=== PATIENT | male | born 1980 | race Caucasian/White ===

== ENCOUNTER 2017-02-19 07:28 | Emergency (ER) | payer BC ==
[~2017-02-19] VITALS: Ht 182.9 cm; Wt 114.0 kg
[~2017-02-19 07:28] MED LIST: CIPR500T2 PO; IBUP-238 PO; TYLE500T PO
[2017-02-19 07:31] VITALS: BP 141/89; PULSE 72; RESP 16; TEMP 98.3; O2SAT 97
--- NOTE | 2017-02-19 07:42 | PD ---
HPI Chief Complaint: Flank/Kidney Pain Time Seen by Provider: 07:42 Travel History International Travel<30 days: No Contact w/Intl Traveler<30days: No Traveled to known affect area: No History of Present Illness HPI 36-year-old male came to the emergency room with history of flank pain bilateral for few weeks. Patient says it has been progressively worsening. He is also experiencing some lower abdominal pain. He has been nauseous on and off but has not vomited. No history of fever or chills. Vital signs were stable. He has passed kidney stones in the past. He says about a week ago he had his urine tested and it was positive for blood. He thinks he is passing a kidney stone again. [facility] Past Medical History Narrative Medical List of his past medical, surgical, social and family history was reviewed from the nursing note. Anxiety: Yes (EXPERIENCES NIGHT TERRORS) Diminished Hearing: No Hypertension: Yes (NOT TREATED) Kidney Stones: Yes Neurologic: Yes (SHINGLES) Respiratory: Yes (SLEEP APNEA) Sleep Apnea: Yes Past Surgical History Appendectomy: Yes Genitourinary Surgery: Yes (LITHOTRIPSY) Social History Alcohol Use: No Tobacco Use: No Substance Use: No Allergies-Medications (Allergen,Severity, Reaction): Coded Allergies: Penicillin (Verified Allergy, Severe, UNKNOWN, 02/19/17) Comments List of his allergies reviewed from the nursing note. Reported Meds & Prescriptions Reported Meds & Active Scripts Active No Active Prescriptions or Reported Medications Narrative Medication List of his home medications reviewed from the nursing note. Review of Systems Except as stated in HPI: all other systems reviewed are Neg Physical Exam Narrative GENERAL: Awake, alert, moderate distress SKIN: Focused skin assessment warm/dry. HEAD: Atraumatic. Normocephalic. EYES: Pupils equal and round. No scleral icterus. No injection or drainage. ENT: No nasal bleeding or discharge. Mucous membranes pink and moist. NECK: Trachea midline. No JVD. CARDIOVASCULAR: Regular rate and rhythm. No murmur appreciated. RESPIRATORY: No accessory muscle use. Clear to auscultation. Breath sounds equal bilaterally. GASTROINTESTINAL: Abdomen soft, non-tender, nondistended. Hepatic and splenic margins not palpable. Left flank tenderness MUSCULOSKELETAL: No obvious deformities. No clubbing. No cyanosis. No edema. NEUROLOGICAL: Awake and alert. No obvious cranial nerve deficits. Motor grossly within normal limits. Normal speech. PSYCHIATRIC: Appropriate mood and affect; insight and judgment normal. Data Data Last Documented VS Vital Signs Date Time Temp Pulse Resp B/P Pulse Ox O2 Delivery O2 Flow Rate FiO2 02/19/17 08:41 16 02/19/17 08:35 68 141/92 98 Room Air 02/19/17 07:31 98.3 Orders Complete Blood Count With Diff (02/19/17 07:45) Basic Metabolic Panel (Bmp) (02/19/17 07:45) Urinalysis - C+S If Indicated (02/19/17 07:45) Ct Abd/Pel W/O Iv Contrast (02/19/17 07:45) Ecg Monitoring (02/19/17 07:45) Iv Access Insert/Monitor (02/19/17 07:45) Morphine Inj (Morphine Inj) (02/19/17 07:45) Sodium Chloride 0.9% Flush (Ns Flush) (02/19/17 07:45) Sodium Chlor 0.9% 1000 Ml Inj (Ns 1000 M (02/19/17 07:45) Ondansetron Inj (Zofran Inj) (02/19/17 07:45) Ondansetron Inj (Zofran Inj) (02/19/17 08:15) Labs Laboratory Tests Test 02/19/17 02/19/17 07:55 08:05 Urine Collection Type CLEAN CATCH Urine Color YELLOW Urine Turbidity CLEAR Urine pH 6.0 Urine Specific Reed 1.025 Urine Protein 30 mg/dL Urine Glucose (UA) NEG mg/dL Urine Ketones NEG mg/dL Urine Occult Blood MOD Urine Nitrite NEG Urine Bilirubin NEG Urine Leukocyte Esterase NEG Urine RBC 4-9 /hpf Urine Squamous Epithelial 0-5 /hpf Cells Urine Mucus OCC /lpf Microscopic Urinalysis Comment CULT NOT INDICATED Urine Collection Time 07:55 White Blood Count 6.0 TH/MM3 Red Blood Count 5.51 MIL/MM3 Hemoglobin 16.0 GM/DL Hematocrit 49.3 % Mean Corpuscular Volume 89.5 FL Mean Corpuscular Hemoglobin 29.1 PG Mean Corpuscular Hemoglobin 32.5 % Concent Red Cell Distribution Width 11.5 % Platelet Count 262 TH/MM3 Mean Platelet Volume 8.4 FL Neutrophils (%) (Auto) 61.3 % Lymphocytes (%) (Auto) 27.0 % Monocytes (%) (Auto) 9.0 % Eosinophils (%) (Auto) 1.4 % Basophils (%) (Auto) 1.3 % Neutrophils # (Auto) 3.7 TH/MM3 Lymphocytes # (Auto) 1.6 TH/MM3 Monocytes # (Auto) 0.5 TH/MM3 Eosinophils # (Auto) 0.1 TH/MM3 Basophils # (Auto) 0.1 TH/MM3 CBC Comment DIFF FINAL Differential Comment Sodium Level 140 MEQ/L Potassium Level 4.3 MEQ/L Chloride Level 105 MEQ/L Carbon Dioxide Level 27.9 MEQ/L Anion Gap 7 MEQ/L Blood Urea Nitrogen 20 MG/DL Creatinine 1.30 MG/DL Estimat Glomerular Filtration 62 ML/MIN Rate Random Glucose 107 MG/DL Calcium Level 9.6 MG/DL [facility] Medical Decision Making Medical Screen Exam Complete: Yes Emergency Medical Condition: Yes Medical Record Reviewed: Yes Differential Diagnosis Ureteral colic, musculoskeletal pain Narrative Course 8:44 AM blood test results of back and within acceptable limits. BUN is slightly elevated suggestive of dehydration. Patient was given IV fluid bolus and medicated for pain. CAT scan does not show any obstructing calculi. Patient will be discharged home. I discussed the test findings with him and gave him instructions to follow up with urology for significant bilateral nephrolithiasis. Procedures EKG Prior to Arrival: No Diagnosis Primary Impression: Flank pain Additional Impression: Nephrolithiasis Referrals: Dipak Lezama MD 2 days Additional Instructions: Please call the urologist whose name and number been provided to you. Follow up with him regarding future kidney stones. Please return to the ER if the condition worsens or any other concerns. Make sure you drink lots of fluid to keep herself hydrated. Med/Other Pt SpecificInfo: No Change to Meds Scripts No Active Prescriptions or Reported Meds Disposition: DISCHARGE HOME Condition: Stable Mae Long MD February 19, 2017 07:42
[2017-02-19] MEDS ORDERED: MORPHINE SULFATE 4 MG/ML INJ IV ONE (07:45)
[2017-02-19] MEDS ORDERED: SODIUM CHLORIDE 0.9% FLUSH 10 ML FLUSH IVF PRN (07:45)
[2017-02-19] MEDS ORDERED: SODIUM CHLOR 0.9% 1000 ML INJ 1,000 ML IV ONE (07:45)
[2017-02-19] MEDS ORDERED: ONDANSETRON HCL 4 MG/2 ML VIAL IM ONE (07:45)
[2017-02-19 08:09] LABS: AUTOMATED NEUTROPHIL # 3.7 TH/MM3 (1.8-7.7); BASOPHIL # 0.1 TH/MM3 (0-0.2); BASOPHIL % 1.3 % (0.0-2.0); EOSINOPHIL # 0.1 TH/MM3 (0-0.4); EOSINOPHIL % 1.4 % (0.0-4.0); HEMATOCRIT 49.3 % (39.0-51.0); HEMO FLAGS DIFF FINAL; LYMPHOCYTE # 1.6 TH/MM3 (1.0-4.8); MEAN CELL VOLUME 89.5 FL (80.0-100.0); MEAN CORPUSCULAR HEMOGLOBIN 29.1 PG (27.0-34.0); MEAN CORPUSCULAR HGB CONC 32.5 % (32.0-36.0); NEUT % 61.3 % (16.0-70.0); PLATELET COUNT 262 TH/MM3 (150-450); RED BLOOD COUNT 5.51 MIL/MM3 (4.50-5.90); RED CELL DISTRIBUTION WIDTH 11.5 % (11.6-17.2)
[2017-02-19 08:10] LABS: GLUCOSE,URINE NEG (NEG); KETONE, URINE NEG (NEG); NITRITE,URINE NEG (NEG)
[2017-02-19 08:15] LABS: BLOOD, URINE MOD (NEG)
[2017-02-19] MEDS ORDERED: ONDANSETRON HCL 4 MG/2 ML VIAL IV PUSH ONE (08:15)
[2017-02-19 08:20] LABS: METHOD OF COLLECTION CLEAN CATCH; URINE COLOR YELLOW (YELLW/STRAW)
[2017-02-19 08:21] LABS: COMMENT (UR) CULT NOT INDICATED; CULTURE IF INDICATED CULT NOT INDICATED; MUCUS URINE OCC /lpf (OCC); SQUAMOUS EPITHELIAL CELL URINE 0-5 /hpf (0-5)
[2017-02-19 08:23] LABS: POTASSIUM 4.3 MEQ/L (3.5-5.1)
[2017-02-19 08:25] LABS: BICARBONATE 27.9 MEQ/L (21.0-32.0)
--- NOTE | 2017-02-19 08:33 | RADHPO ---
EXAM DATE/TIME: 02/19/2017 07:47 [place] COMPARISON: No previous studies available for comparison. INDICATIONS : Bilateral flank pain, lower abdominal pain. Hematuria difficulty urinating. ORAL CONTRAST: No oral contrast ingested. RADIATION DOSE: 24.59 CTDIvol (mGy) MEDICAL HISTORY : Renal calculi. Hypertension. SURGICAL HISTORY : Appendectomy. Lithotripsy. ENCOUNTER: Initial ACUITY: 1 day PAIN SCALE: 7/10 LOCATION: Bilateral flank TECHNIQUE: Volumetric scanning of the abdomen and pelvis was performed. Using automated exposure control and ad justment of the mA and/or kV according to patient size, radiation dose was kept as low as reasonably achievable to obtain optimal diagnostic quality images. FINDINGS: Examination of the lung bases demonstrates no abnormality. No pleural fluid is identified. No pulmona ry nodules are present. The visualized portion of the liver and spleen are normal. The gallbladder an d pancreas are unremarkable. No intrahepatic or extrahepatic ductal dilatation is seen. The adrenal g lands are unremarkable. There are multiple stones in both kidneys without hydronephrosis the largest measuring 5 mm. Examination of the pelvis demonstrates no evidence of free fluid or pelvic mass. No abnormally enlarg ed inguinal or retroperitoneal lymph nodes are present. The bladder is unremarkable. There is diverti culosis without evidence of diverticulitis. CONCLUSION: 1. Multiple bilateral nonobstructing renal stones 2. Diverticulosis without evidence of diverticulitis. Barrtet Beavers MD on February 19, 2017 at 8:26 Board Certified Radiologist. This report was verified electronically.
[2017-02-19 08:35] VITALS: BP 141/92; PULSE 68; RESP 16; O2SAT 98
[2017-02-19 08:41] VITALS: RESP 16
== END 2017-02-19 09:18 | disposition home or self-care (01) ==
LOC: PHED 07:28
DX: R10.9 Unspecified abdominal pain (principal); N20.0 Calculus of kidney; I10 Essential (primary) hypertension; Z88.0 Allergy status to penicillin
CPT/HCPCS: 74176; 80048; 81001; 85025; 96361; 96372; 96374; 99284; J2270; J2405; J7030